=== PATIENT | male | born 1965 | race Caucasian/White ===

== ENCOUNTER 2018-06-04 14:49 | Emergency (ER) | payer OTHER ==
[2018-06-04 20:58] LABS: ETHANOL < 10.0 mg/dl (0-0)
[2018-06-04 20:59] LABS: AMPHETAMINE/METHAMPHETAMINE Negative (NEGATIVE); BARBITURATES Negative (NEGATIVE); BENZODIAZEPINES Negative (NEGATIVE); CANNABINOIDS Positive (NEGATIVE); COCAINE Negative (NEGATIVE); OPIATES Negative (NEGATIVE)
[2018-06-04] MEDS: ONDANSETRON (ODT) 4 MG TAB ODT (23:01)
[2018-06-04] MEDS: KETOROLAC 30 MG INJ IM (23:02)
[2018-06-04] MEDS: HYDROCODONE/APAP (5/325) TAB PO (23:02)
[2018-06-05] MEDS: HYDROCODONE/APAP (5/325) TAB PO (00:36)
[2018-06-05] MEDS: ONDANSETRON (ODT) 4 MG TAB ODT (00:36)
[2018-06-05] MEDS: morphine 2 MG INJ IM (00:37)
== END 2018-06-05 01:14 | disposition home or self-care (01) ==
LOC: FTE 06-05 01:14
DX: M54.2 Cervicalgia (principal); J45.909 Unspecified asthma, uncomplicated; F17.210 Nicotine dependence, cigarettes, uncomplicated; M25.522 Pain in left elbow; R51 Headache
CPT/HCPCS: 70140; 70450; 71046; 72125; 80307; 96372; 99285-25

== ENCOUNTER 2018-11-12 07:04 | Observation (INO) | payer OTHER ==
[2018-11-12] MEDS: CEFAZOLIN 2 GM/50 ML (PMX) 50 ML IVPB (06:00)
[2018-11-12] MEDS: SOD CHLORIDE 0.9% 1,000 ML IV ×2 (08:10→15:16)
[2018-11-12] MEDS ORDERED: BUPIVACAINE 0.25% (MPF) 30 ML INJ (08:46)
[2018-11-12] MEDS ORDERED: ONDANSETRON 4 MG INJ (08:58)
[2018-11-12] MEDS ORDERED: ROPIVACAINE 0.5 % 30 ML VIAL (08:58)
[2018-11-12] MEDS ORDERED: MIDAZOLAM 1 MG/ML 2 ML INJ (08:58)
[2018-11-12] MEDS ORDERED: PROPOFOL 20 ML (08:58)
[2018-11-12] MEDS ORDERED: METOCLOPRAMIDE 10 MG INJ (08:58)
[2018-11-12] MEDS ORDERED: ROCURONIUM 50 MG INJ (08:58)
[2018-11-12] MEDS ORDERED: FENTAnyl 50 MCG/ML VIAL IV ×3 (09:00)
[2018-11-12] MEDS ORDERED: HYDROmorphONE 1 MG/5 ML IV SYRINGE IV (09:00)
[2018-11-12] MEDS ORDERED: ONDANSETRON 4 MG INJ IV (09:00)
[2018-11-12] MEDS ORDERED: OXYCODONE/ACETAMINOPHEN (5/325) TAB PO ×2 (09:00)
[2018-11-12] MEDS ORDERED: MEPERIDINE 25 MG INJ IV (09:00)
[2018-11-12] MEDS ORDERED: GLYCOPYRROLATE 0.4 MG INJ (09:09)
[2018-11-12] MEDS ORDERED: NEOSTIGMINE 3 MG/3 ML SYRINGE (09:09)
[2018-11-12] MEDS ORDERED: CEFAZOLIN 1 GM INJ (09:09)
[2018-11-12] MEDS ORDERED: PHENYLephrine (100 MCG/ML) 10ML SYG (09:09)
[2018-11-12] MEDS ORDERED: HYDROmorphONE 2 MG/ML SYG (09:29)
[2018-11-12] MEDS: POLYMYXIN/BACITRACIN 1L IRRIG IRR (09:39)
[2018-11-12] MEDS: HYDROmorphONE 1 MG/5 ML IV SYRINGE IV ×2 (10:16→10:27)
[2018-11-12] MEDS: HYDROCODONE/APAP (5/325) TAB PO ×4 (10:39→23:57)
[2018-11-12] MEDS: DIPHENHYDRAMINE 50 MG INJ IV (11:55)
[2018-11-12] MEDS ORDERED: ALBUTEROL 18 GM INHALER INH (14:30)
[2018-11-12] MEDS ORDERED: GUAIFENESIN/DM 5ML CUP PO (14:30)
[2018-11-12] MEDS ORDERED: GUAIFENESIN 20 MG/ML 5ML CUP PO (14:30)
[2018-11-12] MEDS ORDERED: NAPROXEN 500 MG TAB PO (14:30)
[2018-11-12] MEDS: FINASTERIDE 5 MG TAB PO (16:04)
[2018-11-12] MEDS: ALBUTEROL HFA 8 GM INHALER INH (17:25)
[2018-11-12] MEDS: NAPROXEN 500 MG TAB PO (18:18)
[2018-11-12] MEDS: LEVETIRACETAM 500 MG TAB PO (20:06)
[2018-11-12] MEDS: TERAZOSIN 5 MG CAP PO (20:07)
[2018-11-12] MEDS: ACETAMINOPHEN 500 MG TAB PO (22:08)
[2018-11-13] MEDS: HYDROCODONE/APAP (5/325) TAB PO ×2 (04:20→12:08)
[2018-11-13] MEDS: MAGNESIUM HYDROXIDE 30ML CUP PO (06:04)
[2018-11-13] MEDS: MULTIVITAMINS THERAPEUTIC TAB PO (08:20)
[2018-11-13] MEDS: NA PHOSPHATE/BIPHOS 133 ML ENEMA PR (08:20)
[2018-11-13] MEDS: FLUTICASONE 0.05% 16 GM NAS SPRAY NASAL (08:20)
[2018-11-13] MEDS: FINASTERIDE 5 MG TAB PO (08:21)
[2018-11-13] MEDS: LEVETIRACETAM 500 MG TAB PO (08:21)
[2018-11-13] MEDS: NAPROXEN 500 MG TAB PO (08:21)
[2018-11-13] MEDS: DIPHENHYDRAMINE 50 MG INJ IV (08:25)
[2018-11-13] MEDS: ACETAMINOPHEN 500 MG TAB PO (12:36)
== END 2018-11-13 15:30 | disposition home or self-care (01) ==
LOC: SDS 07:04 → REC 10:53 → MS1 14:08
DX: K40.30 Unilateral inguinal hernia, with obstruction, without gangrene, not specified as recurrent (principal)
CPT/HCPCS: 49507

== ENCOUNTER 2018-11-21 09:59 | Emergency (ER) | payer OTHER ==
[2018-11-21] MEDS: SOD CHLORIDE 0.9% 500 ML IV (10:30)
[2018-11-21] MEDS: morphine 4 MG/ML VIAL IV (10:30)
[2018-11-21 10:49] LABS: ADD MAN DIFF? NO
[2018-11-21 10:53] LABS: WHITE BLOOD COUNT 8.2 10^3/ul (4.8-10.8)
[2018-11-21 10:53] LABS: BASOPHILS % 0.4 % (0.0-2.0); EOSINOPHILS # 0.1 10^3/ul (0.0-0.5); EOSINOPHILS % 1.3 % (0.0-7.0); HEMATOCRIT 41.5 % (42.0-52.0); LYMPHOCYTES # 1.3 10^3/ul (0.8-2.9); LYMPHOCYTES % 15.7 % (15.0-51.0); MEAN CORPUSCULAR HGB CONC 33.7 g/dl (32.0-37.0); MEAN CORPUSCULAR VOLUME 94.7 fl (82.0-101.0); MEAN PLATELET VOLUME 9.3 fl (7.4-10.4); MONOCYTE # 0.7 10^3/ul (0.3-0.9); NEUTROPHIL # 6.1 10^3/ul (1.6-7.5); NEUTROPHILS % 74.2 % (39.0-77.0); PLATELET COUNT 337 10^3/UL (140-415); RED BLOOD COUNT 4.38 10^6/ul (4.70-6.10); RED CELL DISTRIBUTION WIDTH 11.8 % (11.5-14.5)
[2018-11-21 10:59] LABS: ADD UMIC YES; UR ASCORBIC ACID NEGATIVE (NEGATIVE); UR BILIRUBIN (Dip) NEGATIVE (NEGATIVE); UR BLOOD (Dip) 1+ mg/dL (NEGATIVE); UR CLARITY CLEAR (CLEAR); UR COLOR YELLOW (YELLOW); UR GLUCOSE (Dip) NEGATIVE (NEGATIVE); UR KETONES (Dip) NEGATIVE (NEGATIVE); UR LEUKOCYTE ESTERASE (Dip) NEGATIVE Leu/ul (NEGATIVE); UR MUCUS FEW /HPF (NONE SEEN); UR NITRITE (Dip) NEGATIVE (NEGATIVE); UR RBC 0 /HPF (0-5); UR TOTAL PROTEIN (Dip) NEGATIVE (NEGATIVE); UR UROBILINOGEN (Dip) 2+ mg/dL (NEGATIVE); UR WBC 1 /HPF (0-5)
[2018-11-21 11:14] LABS: ALANINE AMINOTRANSFERASE 26 IU/L (13-69); ALBUMIN 3.8 g/dl (3.3-4.9); ALBUMIN/GLOBULIN RATIO 1.26; ALKALINE PHOSPHATASE 96 IU/L (42-121); ANION GAP 6 (5-13); ASPARTATE AMINO TRANSFERASE 25 IU/L (15-46); BILIRUBIN,INDIRECT 0.5 mg/dl (0-1.1); BILIRUBIN,TOTAL 0.5 mg/dl (0.2-1.3); BLOOD UREA NITROGEN 16 mg/dl (7-20); CALCIUM 9.2 mg/dl (8.4-10.2); CARBON DIOXIDE 30 mmol/L (21-31); CHLORIDE 104 mmol/L (97-110); CREATININE 0.63 mg/dl (0.61-1.24); Estimated GFR > 60 mL/min (>60); GLUCOSE 100 mg/dl (70-220); LIPASE 114 U/L (23-300); POTASSIUM 4.2 mmol/L (3.5-5.1); SODIUM 140 mmol/L (135-144); TOTAL PROTEIN 6.8 g/dl (6.1-8.1)
[2018-11-21] MEDS: IOHEXOL 300MG/ML 150 ML BTL (11:41)
[2018-11-21] MEDS: SOD CHLORIDE 0.9% 100 ML (11:42)
[2018-11-21] MEDS: ACETAMINOPHEN 325 MG TAB PO (13:16)
== END 2018-11-21 14:08 | disposition home or self-care (01) ==
LOC: E/R 09:59
DX: L03.311 Cellulitis of abdominal wall (principal); J45.909 Unspecified asthma, uncomplicated; F17.210 Nicotine dependence, cigarettes, uncomplicated
CPT/HCPCS: 36415; 74177; 80053; 81001; 83690; 85025; 96374; 99285-25